=== PATIENT | male | born 2005 | race Two or more races ===

== ENCOUNTER 2024-07-24 03:15 | Emergency (ER) | payer SELFPAY ==
[~2024-07-24] VITALS: Ht 177.8 cm; Wt 89.9 kg
[2024-07-24 03:25] VITALS: BP 138/87; PULSE 100; RESP 17; TEMP 97.6; O2SAT 97
[2024-07-24] MEDS: SODIUM CHLORIDE 0.9% 1,000 ML IV ONE (03:45)
[2024-07-24 03:53] LABS: Basophils # (auto) 0.1 10 ^3/uL (0-0.2); Basophils % (auto) 0.9 % (0.0-2.0); Eosinophils # (auto) 0.3 10 ^3/uL (0-0.8); Eosinophils % (auto) 4.1 % (0.0-7.0); Hematocrit 47.8 % (41.0-53.0); Lymphocytes # (auto) 1.2 10 ^3/uL (0.4-5.4); Lymphocytes % (auto) 14.7 % (10.0-50.0); Mean Corpuscular Hemoglobin 30.8 pg (28.0-32.0); Mean Corpuscular Hgb Conc. 35.7 g/dL (32.0-36.0); Mean Corpuscular Volume 86.4 fL (80.0-100.0); Monocytes # (auto) 0.6 10 ^3/uL (0-1.3); Monocytes % (auto) 7.1 % (0.0-12.0); Neutrophils # (auto) 5.9 10 ^3/uL (1.6-8.6); Neutrophils % (auto) 73.2 % (37.0-80.0); Nucleated Red Blood Cells % 0.1 %; Platelet Count (auto) 201 10^3/uL (140-450); Red Blood Cells 5.53 10^6/uL (4.5-5.90); Red Cell Distribution Width 13.9 % (11.8-14.3)
[2024-07-24 04:09] LABS: Alanine Aminotransferase 43 U/L (7-40); Albumin 4.9 g/dL (3.2-4.8); Alkaline Phosphatase 128 U/L (46-116); Anion Gap 7 (5-15); Aspartate Aminotransferase 26 U/L (13-40); Bilirubin, Total 0.5 mg/dL (0.2-1.0); Carbon Dioxide 26 mmol/L (20-31); Chloride 105 mmol/L (98-107); Glucose 103 mg/dL (74-106); Potassium 3.4 mmol/L (3.5-5.1); Sodium 138 mmol/L (136-145); Total Protein 8.8 g/dL (5.7-8.2)
[2024-07-24 04:14] LABS: BUN/Creatinine Ratio 6.3 (10.0-20.0); Blood Urea Nitrogen < 5 mg/dL (9-23)
[2024-07-24] MEDS: FAMOTIDINE (10MG/ML) 2ML VL IV ONE (04:58)
[2024-07-24] MEDS: ONDANSETRON HCL 4 MG/2 ML VIAL IV ONE (04:58)
[2024-07-24] MEDS ORDERED: ZOFR4T PO (05:15)
== END 2024-07-24 05:42 | disposition home or self-care (01) ==
LOC: ER 03:15
DX: A08.4 Viral intestinal infection, unspecified (principal)
CPT/HCPCS: 36415; 80053; 85025; 96361; 96374; 96375; 99284; J2405; J3490; J7030